=== PATIENT | male | born 1970 | race Hispanic/Latino ===

== ENCOUNTER 2021-07-03 19:22 | Emergency (ER) | payer OTHER ==
[~2021-07-03] VITALS: Ht 170.2 cm; Wt 97.5 kg
[2021-07-03 19:28] VITALS: BP 117/74
[2021-07-03] MEDS ORDERED: FLUORESCEIN SODIUM 1 STRIP STRIP ONE (19:39)
[2021-07-03] MEDS ORDERED: TETRACAINE HCL 0.5% 4 ML OPHTH SOLN ONE (19:39)
[2021-07-03] MEDS ORDERED: GENT5DRO32 OP (19:59)
[2021-07-03] MEDS ORDERED: GENTAMICIN SULFATE 0.3% 5ML DROPS OU SCH (20:00)
== END 2021-07-03 20:17 | disposition home or self-care (01) ==
LOC: EDH 19:22
DX: H10.9 Unspecified conjunctivitis (principal); E11.9 Type 2 diabetes mellitus without complications; E78.00 Pure hypercholesterolemia, unspecified; I10 Essential (primary) hypertension